=== PATIENT | male | born 1950 | race Caucasian/White ===

== ENCOUNTER 2023-03-02 08:47 | Outpatient (RCR) | payer MEDICARE | END 2023-03-04 | LOC: PT 08:47 | PROVIDERS: ATTEND Specialist | DX: M17.12 Unilateral primary osteoarthritis, left knee (principal) ==

== ENCOUNTER 2023-03-05 10:23 | Outpatient (RCR) | payer MEDICARE | END 2023-04-04 | LOC: PT 10:23 | PROVIDERS: ATTEND Specialist | DX: M17.12 Unilateral primary osteoarthritis, left knee (principal) ==